=== PATIENT | male | born 1990 | race African-American/Black ===

== ENCOUNTER 2016-04-20 11:41 | Emergency (ER) | payer OTHER ==
[2016-04-20 12:01] VITALS: BP 150/77; PULSE 62; TEMP 98.3; BMI 24.3
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
== END 2016-04-20 12:56 | disposition home or self-care (01) ==
LOC: JERFT 11:41
DX: S00.11XA Contusion of right eyelid and periocular area, initial encounter (principal); V43.52XA Car driver injured in collision with other type car in traffic accident, initial encounter; Y92.488 Other paved roadways as the place of occurrence of the external cause; Y93.89 Activity, other specified
CPT/HCPCS: 99281-25